=== PATIENT | male | born 1970 | race Caucasian/White ===

== ENCOUNTER → 2019-09-01 | Emergency (ER) | payer SELFPAY ==
[~2019-09-01] VITALS: Ht 160 cm; Wt 81.6 kg
[2019-09-01 21:11] VITALS: Ht 160 cm; Wt 81.6 kg
[2019-09-02 03:03] VITALS: BP 149/93
== END ==
LOC: ED 20:19
DX: L03.116 Cellulitis of left lower limb (principal); S91.302A Unspecified open wound, left foot, initial encounter; F17.210 Nicotine dependence, cigarettes, uncomplicated; X58.XXXA Exposure to other specified factors, initial encounter; Y93.89 Activity, other specified; Y92.89 Other specified places as the place of occurrence of the external cause; Y99.8 Other external cause status
CPT/HCPCS: 99406